=== PATIENT | female | born 1980 | race Caucasian/White ===

== ENCOUNTER 2019-03-04 20:58 | Emergency (ER) | payer MEDICAID ==
[~2019-03-04] VITALS: Ht 175.3 cm; Wt 56.2 kg
[2019-03-04 21:05] VITALS: BP 115/88
[2019-03-04] MEDS ORDERED: LIDOCAINE-MPF 1%, 5ML INFIL ONE (23:00)
[2019-03-04] MEDS ORDERED: DIPH,PERTUSS(ACELL),TET VAC/PF 0.5 ML IM-VACC ONE ×2 (23:00→23:22)
[2019-03-04] MEDS ORDERED: LIDOCAINE-MPF 1%, 5ML ONE (23:22)
== END 2019-03-05 00:09 | disposition home or self-care (01) ==
LOC: ED 23:59
DX: S61.412A Laceration without foreign body of left hand, initial encounter (principal); F17.210 Nicotine dependence, cigarettes, uncomplicated; Z72.9 Problem related to lifestyle, unspecified; W18.30XA Fall on same level, unspecified, initial encounter; Y93.89 Activity, other specified; Y92.009 Unspecified place in unspecified non-institutional (private) residence as the place of occurrence of the external cause; Y99.8 Other external cause status
CPT/HCPCS: 12001; 90471; 90715; 99283

== ENCOUNTER 2020-05-18 23:54 | Emergency (ER) | payer MEDICAID ==
[~2020-05-18] VITALS: Ht 175.3 cm; Wt 58.9 kg
[2020-05-19 00:50] VITALS: BP 122/89
== END 2020-05-19 00:58 | disposition home or self-care (01) ==
LOC: ED 05-19 00:28
DX: S09.21XA Traumatic rupture of right ear drum, initial encounter (principal); F17.210 Nicotine dependence, cigarettes, uncomplicated; X58.XXXA Exposure to other specified factors, initial encounter; Y93.89 Activity, other specified; Y92.89 Other specified places as the place of occurrence of the external cause; Y99.8 Other external cause status
CPT/HCPCS: 99281; 99406

== ENCOUNTER 2020-08-24 17:09 | Emergency (ER) | payer MEDICAID ==
[~2020-08-24] VITALS: Ht 175.3 cm; Wt 58.6 kg
[2020-08-24 17:24] VITALS: BP 121/79
--- NOTE | 2020-08-24 17:31 | NUR ---
URINE CUP PROVIDED.
--- NOTE | 2020-08-24 18:31 | NUR ---
nilx2
--- NOTE | 2020-08-24 19:10 | NUR ---
PT CALLED FOR ROOM. NA X 3 . PT TO BE DICHARGED
== END 2020-08-24 19:13 | disposition left against medical advice (07) ==
LOC: ED 19:07
DX: N23 Unspecified renal colic (principal); Z53.21 Procedure and treatment not carried out due to patient leaving prior to being seen by health care provider

== ENCOUNTER 2020-08-25 03:10 | Emergency (ER) | payer MEDICAID ==
[~2020-08-25] VITALS: Ht 175.3 cm; Wt 59.0 kg
--- NOTE | 2020-08-25 03:39 | NUR ---
pt was here earlier today for "kidney pain". pt left without being seen and stated she took the urine cup home and urinated and brought the sample here. pt told that we cannot accept te urine and would like a nw sample. urine discarded, and new cup provided.
--- NOTE | 2020-08-25 03:55 | NUR ---
pt able to provide some urine, sent to lab
[2020-08-25 04:05] LABS: HCG UR SG 1.019 (1.003-1.030)
[2020-08-25 04:05] LABS: BASOPHILS % (AUTO) 1 % (0-1); EOSINOPHILS % (AUTO) 2 % (1-7); LYMPHOCYTES % (AUTO) 29 % (22-44); MEAN CORPUSCULAR HEMOGLOBIN 30.3 pg (27.0-34.8); MEAN PLATELET VOLUME 9.4 fL (7.4-10.4); MONOCYTES % (AUTO) 11 % (2-9); NEUTROPHILS % (AUTO) 57 % (42-75); PLATELET COUNT 225 x10^3/uL (130-400); RED BLOOD COUNT 4.81 x10^6/uL (3.82-5.3); RED CELL DISTRIBUTION WIDTH 12.4 % (9.6-15.2)
[2020-08-25 04:08] LABS: ALANINE AMINOTRANSFERASE 10 U/L (12-78); ALBUMIN 3.5 g/dL (3.4-5.0); ANION GAP 3 mmol/L (5-15); CALCIUM 9.3 mg/dL (8.5-10.1); CHLORIDE 105 mmol/L (98-107); CREATININE 0.79 mg/dL (0.55-1.02)
[2020-08-25 04:09] LABS: MD NO
[2020-08-25 04:10] LABS: MICROSCOPIC INDICATED
[2020-08-25 04:11] LABS: ALKALINE PHOSPHATASE 33 U/L (45-117); BILIRUBIN,TOTAL 0.3 mg/dL (0.2-1.0); TOTAL PROTEIN 6.8 g/dL (6.4-8.2)
== END 2020-08-25 04:45 | disposition home or self-care (01) ==
LOC: ED 03:28
DX: M54.5 Low back pain (principal); R10.9 Unspecified abdominal pain; F17.200 Nicotine dependence, unspecified, uncomplicated
CPT/HCPCS: 36415; 80053; 81001; 81025; 83690; 85025; 87086; 99283